=== PATIENT | female | born 1985 | race Caucasian/White ===

== ENCOUNTER 2022-05-26 05:40 | Outpatient (CLI) | payer BC ==
[~2022-05-26] VITALS: Ht 137.7 cm; Wt 110.0 kg
[2022-05-26] MEDS ORDERED: OMEP40CA6 PO (12:58)
[2022-05-26] MEDS ORDERED: RT-ALBUINH INH (12:58)
[2022-05-26] MEDS ORDERED: BUPR-42 PO (12:58)
[2022-05-26] MEDS ORDERED: CITA20TA12 PO (12:58)
[2022-05-26] MEDS ORDERED: ALBU0.63 IH (12:59)
[2022-05-26] MEDS ORDERED: ALPR0.5T7 PO (13:04)
[2022-05-28] MEDS ORDERED: AMOX-355 PO (12:37)
[2022-05-28] MEDS ORDERED: PRD20T PO (12:37)
[2022-05-28] MEDS ORDERED: TRAM50TA3 PO (12:37)
== END 2022-05-27 09:25 ==
LOC: PREOP 05:40
PROVIDERS: ATTEND Otolaryngology Otolaryngology/Facial Plastic Surgery
DX: Z01.818 Encounter for other preprocedural examination (principal)

== ENCOUNTER 2022-05-28 08:50 | Day surgery (SDC) | payer BC ==
[2022-05-28] VITALS (12 sets, daily range): BP systolic 103–131; BP diastolic 64–96
[~2022-05-28] VITALS: Ht 137.7 cm; Wt 110.0 kg
[~2022-05-28 08:50] MED LIST: ALBU0.63 IH; ALPR0.5T7 PO; BUPR-42 PO; CITA20TA12 PO; OMEP40CA6 PO; RT-ALBUINH INH
[2022-05-28] MEDS ORDERED: COCAINE HCL 4% 2 ML SYR ONE (08:58)
[2022-05-28] MEDS ORDERED: PHENYLEPHRINE 0.5% NASAL SPR (NEO-SYNEPHRINE) REG ONE (08:58)
[2022-05-28] MEDS ORDERED: BSS 15 ML ONE (08:59)
[2022-05-28] MEDS ORDERED: AMPICILLIN/SULBACTAM INJECTION 1.5 GM in NS (IVPB) 100 ML IV ONE (09:00)
[2022-05-28] MEDS ORDERED: HYDROCORTISONE 100 MG/2 ML (Solu-CORTEF) VIAL IV ONE (09:00)
[2022-05-28] MEDS ORDERED: LIDOCAINE/EPI 1%-1:100,000 (XYLOCAINE) 30ML INJ ONE (09:15)
[2022-05-28] MEDS ORDERED: LIDOCAINE 1% INJ ONE ×2 (09:15)
[2022-05-28] MEDS ORDERED: EPI INJ ONE ×2 (09:15)
--- NOTE | 2022-05-28 09:17 | Diagnostic Imaging Report ---
EXAMINATION: Chest 2 view HISTORY: PREOP COMPARISON: None available. FINDINGS: Heart size and pulmonary vasculature are normal. The lungs are clear without consolidation, pleural effusion, or pneumothorax. The osseous structures are intact. IMPRESSION: 1. No acute radiographic abnormality in the chest. Dictated by: Dictated on workstation # [id number]
[2022-05-28] MEDS ORDERED: ONDANSETRON 4 MG/2 ML (SDV) Z0FRAN ONE ×2 (09:23→09:51)
[2022-05-28] MEDS ORDERED: SCOPOLAMINE 1.5 MG (TRANSDERM-SCOP) PATCH ONE (09:23)
[2022-05-28] MEDS ORDERED: FAMOTIDINE 20MG/2ML IV (PEPCID) ONE (09:25)
[2022-05-28 09:33] LABS: BASOPHILS % (AUTO) 0 % (0-10); EOSINOPHILS % (AUTO) 0 % (0-10); HEMATOCRIT 35 % (35-52); HEMOGLOBIN 11.6 g/dL (11.5-16.0); LYMPHOCYTES # (AUTO) 2.6 10^3/uL (1.0-4.0); LYMPHOCYTES % (AUTO) 38 % (12-44); MEAN CORPUSCULAR HEMOGLOBIN 31 pg (25-34); MEAN CORPUSCULAR HGB CONC 33 g/dL (32-36); MEAN CORPUSCULAR VOLUME 92 fL (80-99); MEAN PLATELET VOLUME 9.5 fL (9.0-12.2); MONOCYTES # (AUTO) 0.4 10^3/uL (0.0-1.0); MONOCYTES % (AUTO) 7 % (0-12); NEUTROPHILS # (AUTO) 3.6 10^3/uL (1.8-7.8); NEUTROPHILS % (AUTO) 54 % (42-75); PLATELET COUNT 181 10^3/uL (130-400); WHITE BLOOD COUNT 6.7 10^3/uL (4.3-11.0)
[2022-05-28] MEDS: LACTATED RINGERS 1,000 ML IV PRN ×2 (09:37→11:28)
--- NOTE | 2022-05-28 09:38 | Progress Note-Pre Operative ---
Pre-Operative Progress Note Date of Available H&P: May 28, 2022 Date H&P Reviewed: May 28, 2022 Time H&P Reviewed: 09:00 History & Physical: H&P Reviewed, Patient Examed, No changes noted Changes from last HP none Pre-Operative Diagnosis: Bilat Recurrent/Chronic Sinusitis, Deviated septum, Bilat hyper of inf turb DEWEY ASTUDILLO MD May 28, 2022 09:38
--- NOTE | 2022-05-28 09:39 | Progress Note-Post Operative ---
Post-Operative Progess Note Surgeon (s)/Sonoscope Operator (s) Surgeon DEWEY ASTUDILLO MD Sonoscope Operator n/a Pre-Operative Diagnosis Bilat Recurrent/Chronic Sinusitis, Deviated septum, Bilat hyper of inf turb Post-Operative Diagnosis same Post-Op Procedure Note Date of Procedure: May 28, 2022 Name of Procedure Performed: Bilat ESS, Nasal Septoplasty, Bilat Red of Inf Turbs Description & Findings Description and Findings: n/a Anesthesia Type get Estimated Blood Loss minimal Packing none. Specimen(s) collected/removed bilat chornic sinusitis, nasal septum DEWEY ASTUDILLO MD May 28, 2022 09:39
[2022-05-28] MEDS ORDERED: HYDROcodone/APAP 5 MG/325 MG (LORTAB) TAB PO PRN (09:45)
[2022-05-28] MEDS ORDERED: predniSONE 20 MG TAB PO ONE (09:45)
[2022-05-28] MEDS ORDERED: ONDANSETRON 4 MG/2 ML (SDV) Z0FRAN IVP ONE (09:45)
[2022-05-28] MEDS ORDERED: D5 1/2 NS W/KCL 20 MEQ/L 1,000 ML IV SCH (09:45)
[2022-05-28] MEDS ORDERED: PROMETHAZINE INJ 25 MG/ML (PHENERGAN) AMP IVP PRN (09:45)
[2022-05-28] MEDS ORDERED: SCOPOLAMINE 1.5 MG (TRANSDERM-SCOP) PATCH TD ONE (09:45)
[2022-05-28] MEDS ORDERED: FAMOTIDINE 20MG/2ML IV (PEPCID) IVP ONE (09:45)
[2022-05-28 09:50] LABS: CALCIUM 8.5 MG/DL (8.5-10.1); CREATININE SERUM 0.78 MG/DL (0.60-1.30); POTASSIUM 2.9 MMOL/L (3.6-5.0)
[2022-05-28] MEDS ORDERED: MIDAZOLAM 2 MG/2 ML (VERSED) VIAL ONE (09:51)
[2022-05-28] MEDS ORDERED: SEVOFLURANE (ULTANE) 15 ML INHAL SOLN ONE ×2 (09:51→11:23)
[2022-05-28] MEDS ORDERED: ROCURONIUM 10 MG/ML 5 ML SYRINGE IV ONE (09:51)
[2022-05-28] MEDS ORDERED: LIDOCAINE PF 2% 5 ML (XYLOCAINE) VIAL ONE (09:51)
[2022-05-28] MEDS ORDERED: proPOfol 200 MG/20 ML (DIPRIVAN) VIAL IV ONE (09:51)
[2022-05-28] MEDS ORDERED: fentaNYL INJ 100 MCG/2 ML AMP ONE (09:51)
[2022-05-28] MEDS ORDERED: COCAINE HCL 4% 2 ML SYR TOP ONE (10:19)
[2022-05-28] MEDS ORDERED: BSS 15 ML IO ONE (10:20)
[2022-05-28] MEDS ORDERED: PHENYLEPHRINE 0.25% NASAL SPR (NEO-SYNEPHRINE) 15 ML NS ONE (10:22)
[2022-05-28] MEDS ORDERED: NEOSTIGMINE (BLOXIVERZ ) 1 MG/1ML 10 ML VIAL ONE (11:11)
[2022-05-28] MEDS ORDERED: GLYCOPYRROLATE 0.2 MG/ML (ROBINUL) 2 ML VIAL ONE (11:11)
[2022-05-28] MEDS ORDERED: HYDROmorphone 2 MG/ML VIAL (DILAUDID) IV ONE (11:30)
[2022-05-28] MEDS ORDERED: ONDANSETRON 4 MG/2 ML (SDV) Z0FRAN IVP PRN (11:30)
[2022-05-28] MEDS ORDERED: HYDROmorphone 2 MG/ML VIAL (DILAUDID) IV NR (11:30)
[2022-05-28] MEDS: HYDROmorphone 2 MG/ML VIAL (DILAUDID) IV PRN ×4 (11:45→12:15)
--- NOTE | 2022-05-28 12:01 | Anesthesia-General Post-Op ---
General Patient Condition Mental Status/LOC: Same as Preop Cardiovascular: Satisfactory Nausea/Vomiting: Absent Respiratory: Satisfactory Pain: Controlled Complications: Absent Post Op Complications Complications None Follow Up Care/Instructions Patient Instructions None needed. Anesthesia/Patient Condition Patient Condition Patient is doing well, no complaints, stable vital signs, no apparent adverse anesthesia problems. No complications reported per nursing. D/C home per [facility] [place] Criteria: Yes FAWAD ALEXANDER CRNA May 28, 2022 12:01
[2022-05-28] MEDS ORDERED: AMOX-355 PO (12:37)
[2022-05-28] MEDS ORDERED: TRAM50TA3 PO (12:37)
[2022-05-28] MEDS ORDERED: PRD20T PO (12:37)
[2022-05-28] MEDS ORDERED: predniSONE 20 MG TAB PO NR (12:45)
== END 2022-05-28 14:10 ==
LOC: SDC 08:50
PROVIDERS: ATTEND Otolaryngology Otolaryngology/Facial Plastic Surgery
DX: J32.0 Chronic maxillary sinusitis (principal); J34.2 Deviated nasal septum; J34.3 Hypertrophy of nasal turbinates; R09.81 Nasal congestion; J45.909 Unspecified asthma, uncomplicated
CPT/HCPCS: 36415; 71046; 80048; 84703; 85025; 87081; 93005